=== PATIENT | female | born 1990 | race African-American/Black ===

== ENCOUNTER 2019-10-01 03:05 | Inpatient (IN) | payer BC, MEDICAID ==
[~2019-10-01 03:05] MED LIST: Bupivacaine 0.25% 10 ML SDV ONE; Lidocaine 1.5% with EPINEPHrine 1:200,000 5 ML Amp ONE
[2019-10-01] MEDS ORDERED: Oxytocin/Lactated Ringers 10 UNIT/1,000 ML BAG IV SCH ×2 (05:45)
[2019-10-01] MEDS ORDERED: Sodium Chloride 0.9% 10 ML Syringe FLUSH PRN (05:45)
[2019-10-01] MEDS ORDERED: Ondansetron 4 MG/2 ML SDV IVPUSH PRN ×2 (05:45→07:41)
[2019-10-01] MEDS ORDERED: Nalbuphine 10 MG/ML Syringe IVPUSH PRN (05:45)
[2019-10-01] MEDS: Lactated Ringers 1,000 ML IV SCH ×3 (06:20→08:33)
--- NOTE | 2019-10-01 07:12 | PCM.LDHP ---
L&D History of Present Illness - General Date of Service: 10/01/19 Admit Problem/Dx: Patient Status Order with Admit Dx/Problem 10/01/19 05:44 Patient Status [ADT] Routine 10/01/19 05:46 Patient Status [ADT] Routine Admission Diagnosis/Problem Admission Diagnosis/Problem Source of Information: Patient History Limitations: Reports: No Limitations - History of Present Illness Introduction:: 28 year old at 39w6d here with labor. Painful contractions. PNC with Dr Paniagua without complications. - Related Data Allergies/Adverse Reactions: Allergies Allergy/AdvReac Type Severity Reaction Status Date / Time No Known Allergies Allergy Verified 10/01/19 06:37 Home Medications: Home Meds . [No Known Home Meds] 11/29/14 [History] Past Medical History - Past Health History Medical/Surgical History: Denies Medical/Surgical History Social & Family History - Family History Family Medical History: Unobtainable H&P Review of Systems - Review of Systems: Review Of Systems: See Below General: Reports: No Symptoms HEENT: Reports: No Symptoms Pulmonary: Reports: No Symptoms Cardiovascular: Reports: No Symptoms Gastrointestinal: Reports: No Symptoms Genitourinary: Reports: No Symptoms Musculoskeletal: Reports: No Symptoms Skin: Reports: No Symptoms Psychiatric: Reports: No Symptoms Neurological: Reports: No Symptoms Hematologic/Lymphatic: Reports: No Symptoms Immunologic: Reports: No Symptoms L&D Exam - Exam Exam: See Below - OB Specific Contraction Intensity: Moderate to Strong Movement: Active Heart Rate (FHR) Variability: Moderate (6-25 bmp) Presentation: Vertex - Nova Score Nova Score Cervix Position: Posterior Nova Score Consistency: Soft Nova Score Effacement: 51-70% Nova Score Infant's Station: -2 - Exam General: Alert, Oriented HEENT: PERRLA, Conjunctiva Clear, EACs Clear, EOMI, Hearing Intact, Mucosa Moist & [place], Nares Patent, Normal Nasal Septum, Posterior Pharynx Clear, TMs Clear Neck: Supple, Trachea Midline Lungs: Clear to Auscultation, Normal Respiratory Effort Cardiovascular: Regular Rate, Regular Rhythm GI/Abdominal Exam: Normal Bowel Sounds, Soft, Non-Tender, No Organomegaly, No Distention, No Abnormal Bruit, No Mass, Pelvis Stable Genitourinary: Normal external exam, Normal bimanual exam Back Exam: Normal Inspection, Full Range of Motion Extremities: Normal Inspection, Normal Range of Motion, Non-Tender, No Pedal Edema, Normal Capillary Refill Skin: Warm, Dry, Intact Neurological: Cranial Nerves Intact, Reflexes Equal Bilateral Psychiatric: Alert, Normal Affect, Normal Mood - Patient Data Lab Results Last 24 hrs: Laboratory Results - last 24 hr 10/01/19 Range/Units 05:56 WBC 7.01 (3.98-10.04) K/mm3 RBC 4.49 (3.98-5.22) M/mm3 Hgb 10.8 L (11.2-15.7) gm/dl Hct 34.3 (34.1-44.9) % MCV 76.4 L (79.4-94.8) fl MCH 24.1 L (25.6-32.2) pg MCHC 31.5 L (32.2-35.5) g/dl RDW Std Deviation 44.2 (36.4-46.3) fL Plt Count 280 (182-369) K/mm3 MPV 10.9 (9.4-12.3) fl Neut % (Auto) 63.5 (34.0-71.1) % Lymph % (Auto) 23.1 (19.3-51.7) % [place] % (Auto) 11.4 (4.7-12.5) % Eos % (Auto) 0.7 (0.7-5.8) Baso % (Auto) 0.3 (0.1-1.2) % Neut # (Auto) 4.45 (1.56-6.13) K/mm3 Lymph # (Auto) 1.62 (1.18-3.74) K/mm3 [place] # (Auto) 0.80 H (0.24-0.36) K/mm3 Eos # (Auto) 0.05 (0.04-0.36) K/mm3 Baso # (Auto) 0.02 (0.01-0.08) K/mm3 Result Diagrams: 10/01/19 05:56 Problem List Initiated/Reviewed/Updated: Yes Orders Last 24hrs: Active Orders 24 hr Category Date Time Status Patient Status [ADT] Routine ADT 10/01/19 05:44 Active Patient Status [ADT] Routine ADT 10/01/19 05:46 Active Activity as Tolerated [RC] PFP Care 04/12/20 05:46 Active Communication Order [RC] ASDIRECTED Care 10/01/19 05:46 Active Heart Tones [RC] ASDIRECTED Care 10/01/19 05:46 Active Non Stress Test [RC] PER UNIT ROUTINE Care 10/01/19 05:44 Active Notify Provider [RC] PFP Care 10/01/19 05:46 Active Notify Provider [RC] PRN Care 10/01/19 05:46 Active Peripheral IV Care [RC] . DIRECTED Care 10/01/19 05:46 Active Pump Management, Intrathecal [RC] ASDIRECTED Care 10/01/19 05:46 Active Vital Signs [RC] PER UNIT ROUTINE Care 10/01/19 05:44 Active Vital Signs [RC] PER UNIT ROUTINE Care 10/01/19 05:46 Active Regular Diet [DIET] Diet 10/01/19 Breakfast Active BLOOD BANK HOLD SPECIMEN [BBK] Stat Lab 10/01/19 05:45 Ordered RAPID PLASMA REAGIN,RPR [CHEM] Routine Lab 10/01/19 05:56 Received Lactated Ringers [Ringers, Lactated] 1,000 ml Med 10/01/19 05:45 Active IV ASDIRECTED Nalbuphine [Nubain] Med 10/01/19 05:45 Active 10 mg IVPUSH Q2H PRN Ondansetron [Zofran] Med 10/01/19 05:45 Active 4 mg IVPUSH Q4H PRN Oxytocin/Lactated Ringers [Pitocin in LR 10 Units/1,000 Med 10/01/19 05:45 Active ML] 10 unit in 1,000 ml IV .CONTINUOUS Oxytocin/Lactated Ringers [Pitocin in LR 10 Units/1,000 Med 10/01/19 05:45 Active ML] 10 unit in 1,000 ml IV TITRATE Sodium Chloride 0.9% [Saline Flush] Med 10/01/19 05:45 Active 10 ml FLUSH ASDIRECTED PRN Electronic Heart Tones Ext w TOCO [WOMSER] Oth 10/01/19 05:46 Ordered Routine Electronic Heart Tones Internal [WOMSER] Per Unit Oth 10/01/19 05:46 Ordered Routine Peripheral IV Insertion Adult [OM.PC] Routine Oth 10/01/19 05:46 Ordered Resuscitation Status Routine Resus Stat 10/01/19 05:44 Ordered Medication Orders Lactated Ringer's (Ringers, Lactated) 1,000 mls @ 100 mls/hr IV ASDIRECTED CARMEN Last Admin: 10/01/19 06:20 Dose: 100 mls/hr Oxytocin/Lactated Ringer's (Pitocin In Lr 10 Units/1,000 Ml) 10 unit in 1,000 mls @ 12 mls/hr IV TITRATE CARMEN; Protocol Oxytocin/Lactated Ringer's (Pitocin In Lr 10 Units/1,000 Ml) 10 unit in 1,000 mls @ 500 mls/hr IV .CONTINUOUS CARMEN Nalbuphine HCl (Nubain) 10 mg IVPUSH Q2H PRN PRN Reason: Pain Last Admin: 10/01/19 06:31 Dose: 10 mg Ondansetron HCl (Zofran) 4 mg IVPUSH Q4H PRN PRN Reason: Nausea/Vomiting Sodium Chloride (Saline Flush) 10 ml FLUSH ASDIRECTED PRN PRN Reason: Keep Vein Open Assessment/Plan Comment:: Term labor. Desires epidural. Changed from 1 to 3 cm. AROM clear fluid.
[2019-10-01] MEDS ORDERED: ePHEDrine 50 MG/ML SDV IVPUSH PRN (07:41)
--- NOTE | 2019-10-01 07:44 | PCM.PREANE ---
Preanesthetic Assessment - Anesthesia/Transfusion/Family Hx Anesthesia History: No Prior Anesthesia Family History of Anesthesia Reaction: No Transfusion History: No Prior Transfusion(s) Intubation History: Unknown - Review of Systems General: No Symptoms Pulmonary: No Symptoms Cardiovascular: No Symptoms Gastrointestinal: No Symptoms, Nausea Neurological: No Symptoms Other: Reports: None - Physical Assessment NPO Status Date: 09/30/19 NPO Status Time: 16:00 Vital Signs: HR:90 BP:106/64 Resp:20 Sat:99% Temp:98.2 Height: 1.52 m Weight: 65.317 kg ASA Class: 2 Mental Status: Alert & Oriented x3 Airway Class: Mallampati = 2 Dentition: Reports: Normal Dentition, Caries Thyro-Mental Finger Breadths: 3 Mouth Opening Finger Breadths: 3 ROM/Head Extension: Full Lungs: Clear to Auscultation, Normal Respiratory Effort Cardiovascular: Regular Rate, Regular Rhythm, No Murmurs - Lab Values: Laboratory Last Values WBC 7.01 K/mm3 (3.98-10.04) 10/01/19 05:56 RBC 4.49 M/mm3 (3.98-5.22) 10/01/19 05:56 Hgb 10.8 gm/dl (11.2-15.7) L 10/01/19 05:56 Hct 34.3 % (34.1-44.9) 10/01/19 05:56 MCV 76.4 fl (79.4-94.8) L 10/01/19 05:56 MCH 24.1 pg (25.6-32.2) L 10/01/19 05:56 MCHC 31.5 g/dl (32.2-35.5) L 10/01/19 05:56 RDW Std Deviation 44.2 fL (36.4-46.3) 10/01/19 05:56 Plt Count 280 K/mm3 (182-369) 10/01/19 05:56 MPV 10.9 fl (9.4-12.3) 10/01/19 05:56 Neut % (Auto) 63.5 % (34.0-71.1) 10/01/19 05:56 Lymph % (Auto) 23.1 % (19.3-51.7) 10/01/19 05:56 [place] % (Auto) 11.4 % (4.7-12.5) 10/01/19 05:56 Eos % (Auto) 0.7 (0.7-5.8) 10/01/19 05:56 Baso % (Auto) 0.3 % (0.1-1.2) 10/01/19 05:56 Neut # (Auto) 4.45 K/mm3 (1.56-6.13) 10/01/19 05:56 Lymph # (Auto) 1.62 K/mm3 (1.18-3.74) 10/01/19 05:56 [place] # (Auto) 0.80 K/mm3 (0.24-0.36) H 10/01/19 05:56 Eos # (Auto) 0.05 K/mm3 (0.04-0.36) 10/01/19 05:56 Baso # (Auto) 0.02 K/mm3 (0.01-0.08) 10/01/19 05:56 Above labs reviewed and noted and within acceptable ranges to proceed with epidural. - Allergies Allergies/Adverse Reactions: Allergies Allergy/AdvReac Type Severity Reaction Status Date / Time No Known Allergies Allergy Verified 10/01/19 06:37 - Anesthesia Plan Pre-Op Medication Ordered: None - Acknowledgements Anesthesia Type Planned: Epidural Pt an Appropriate Candidate for the Planned Anesthesia: Yes Alternatives and Risks of Anesthesia Discussed w Pt/Guardian: Yes Pt/Guardian Understands and Agrees with Anesthesia Plan: Yes PreAnesthesia Questionnaire - Past Health History Medical/Surgical History: Denies Medical/Surgical History - HOME MEDS Home Medications: Home Meds . [No Known Home Meds] 11/29/14 [History] - CURRENT (IN HOUSE) MEDS Current Meds: Current Medications Ephedrine Sulfate (Ephedrine Sulfate) 5 mg IVPUSH ASDIRECTED PRN PRN Reason: Hypotension Fentanyl (Sublimaze) 100 mcg EPIDUR Q3H PRN PRN Reason: Pain Fentanyl/Bupivacaine HCl (Fentanyl/Bupivacaine/Ns 2 Mcg-0.125% 100 Ml) 100 ml EPIDUR ASDIRECTED CARMEN Lactated Ringer's (Ringers, Lactated) 1,000 mls @ 100 mls/hr IV ASDIRECTED CARMEN Last Admin: 10/01/19 06:20 Dose: 100 mls/hr Oxytocin/Lactated Ringer's (Pitocin In Lr 10 Units/1,000 Ml) 10 unit in 1,000 mls @ 12 mls/hr IV TITRATE CARMEN; Protocol Oxytocin/Lactated Ringer's (Pitocin In Lr 10 Units/1,000 Ml) 10 unit in 1,000 mls @ 500 mls/hr IV .CONTINUOUS CARMEN Phenylephrine HCl 1 mg/ Sodium (Chloride) 10.1 mls @ 1 mls/sec IV TITRATE CARMEN; Protocol Nalbuphine HCl (Nubain) 10 mg IVPUSH Q2H PRN PRN Reason: Pain Last Admin: 10/01/19 06:31 Dose: 10 mg Ondansetron HCl (Zofran) 4 mg IVPUSH Q4H PRN PRN Reason: Nausea/Vomiting Ondansetron HCl (Zofran) 4 mg IVPUSH ONETIME PRN PRN Reason: Nausea/Vomiting Sodium Chloride (Saline Flush) 10 ml FLUSH ASDIRECTED PRN PRN Reason: Keep Vein Open
[2019-10-01] MEDS ORDERED: Bupivacaine/fentaNYL/NS 100 ML Bag EPIDUR SCH (07:45)
[2019-10-01] MEDS ORDERED: Phenylephrine 1 MG in Sodium Chloride 0.9% 10 ML IV SCH (07:45)
[2019-10-01] MEDS: fentaNYL 100 MCG/2 ML SDV EPIDUR PRN ×2 (08:10→12:44)
--- NOTE | 2019-10-01 16:01 | PCM.SN ---
- Free Text/Narrative Note: Stage I - Patient presented in labor with painful contractions and cervical change. Progressed to complete with AROM and pitocin augmentation after epidural. Stage II - of viable male, weight 6#7oz, 8/9 APGARS at 1534. Head delivered in controlled manner over intact perineum, body and shoulders followed without difficulty. To maternal abdomen. Cord clamped and cut by FOB. Stage III - of intact placenta. 3vc. EBL 300. 2nd degree MLL repaired with 3 -0 vicryl.
[2019-10-01] MEDS ORDERED: Docusate Sodium 100 MG Cap PO PRN (16:20)
[2019-10-01] MEDS ORDERED: Benzocaine/Menthol 20%-0.5% Spray 56 GM Canister TOP PRN (16:20)
[2019-10-01] MEDS: Witch Hazel Medicated Pads 40/Jar TOP PRN (18:47)
[2019-10-01] MEDS: Ibuprofen 600 MG Tab PO PRN (18:47)
--- NOTE | 2019-10-02 01:00 | PCM.PNPP ---
- General Info Date of Service: 10/02/19 Functional Status: Reports: Pain Controlled - Review of Systems General: Reports: No Symptoms HEENT: Reports: No Symptoms Pulmonary: Reports: No Symptoms Cardiovascular: Reports: No Symptoms Gastrointestinal: Reports: No Symptoms Genitourinary: Reports: No Symptoms Musculoskeletal: Reports: No Symptoms Skin: Reports: No Symptoms Neurological: Reports: No Symptoms Psychiatric: Reports: No Symptoms - General Info Date of Service: 10/02/19 - Patient Data Vital Signs - Most Recent: Last Vital Signs Temp 36.8 C 10/01/19 20:45 Pulse 96 10/01/19 20:45 Resp 16 10/01/19 20:45 BP 95/50 L 10/01/19 20:45 Pulse Ox 100 10/01/19 20:45 Weight - Most Recent: 65.317 kg I&O - Last 24 Hours: Intake & Output 10/01/19 10/01/19 10/02/19 14:59 22:59 06:59 Intake Total 1000 100 Balance 1000 100 Lab Results - Last 24 Hours: Laboratory Results - last 24 hr 10/01/19 Range/Units 05:56 WBC 7.01 (3.98-10.04) K/mm3 RBC 4.49 (3.98-5.22) M/mm3 Hgb 10.8 L (11.2-15.7) gm/dl Hct 34.3 (34.1-44.9) % MCV 76.4 L (79.4-94.8) fl MCH 24.1 L (25.6-32.2) pg MCHC 31.5 L (32.2-35.5) g/dl RDW Std Deviation 44.2 (36.4-46.3) fL Plt Count 280 (182-369) K/mm3 MPV 10.9 (9.4-12.3) fl Neut % (Auto) 63.5 (34.0-71.1) % Lymph % (Auto) 23.1 (19.3-51.7) % [place] % (Auto) 11.4 (4.7-12.5) % Eos % (Auto) 0.7 (0.7-5.8) Baso % (Auto) 0.3 (0.1-1.2) % Neut # (Auto) 4.45 (1.56-6.13) K/mm3 Lymph # (Auto) 1.62 (1.18-3.74) K/mm3 [place] # (Auto) 0.80 H (0.24-0.36) K/mm3 Eos # (Auto) 0.05 (0.04-0.36) K/mm3 Baso # (Auto) 0.02 (0.01-0.08) K/mm3 Med Orders - Current: Current Medications Benzocaine/Menthol (Dermoplast Pain Relief [place]) 0 gm TOP ASDIRECTED PRN PRN Reason: Perineal Comfort Measure Last Admin: 10/01/19 18:47 Dose: 1 can Docusate Sodium (Colace) 100 mg PO BID PRN PRN Reason: Constipation Ibuprofen (Motrin) 600 mg PO Q6H PRN PRN Reason: Mild pain or fever Last Admin: 10/01/19 18:47 Dose: 600 mg Witch Samuel (Tucks) 1 pad TOP ASDIRECTED PRN PRN Reason: Pain Last Admin: 10/01/19 18:47 Dose: 1 tub Discontinued Medications Ephedrine Sulfate (Ephedrine Sulfate) 5 mg IVPUSH ASDIRECTED PRN PRN Reason: Hypotension Fentanyl (Sublimaze) 100 mcg EPIDUR Q3H PRN PRN Reason: Pain Last Admin: 10/01/19 12:44 Dose: 100 mcg Fentanyl/Bupivacaine HCl (Fentanyl/Bupivacaine/Ns 2 Mcg-0.125% 100 Ml) 100 ml EPIDUR ASDIRECTED CARMEN Lactated Ringer's (Ringers, Lactated) 1,000 mls @ 100 mls/hr IV ASDIRECTED CARMEN Last Admin: 10/01/19 08:33 Dose: 100 mls/hr Oxytocin/Lactated Ringer's (Pitocin In Lr 10 Units/1,000 Ml) 10 unit in 1,000 mls @ 12 mls/hr IV TITRATE CARMEN; Protocol Last Admin: 10/01/19 10:09 Dose: 2 munits/min, 12 mls/hr Oxytocin/Lactated Ringer's (Pitocin In Lr 10 Units/1,000 Ml) 10 unit in 1,000 mls @ 500 mls/hr IV .CONTINUOUS CARMEN Phenylephrine HCl 1 mg/ Sodium (Chloride) 10.1 mls @ 1 mls/sec IV TITRATE CARMEN; Protocol Nalbuphine HCl (Nubain) 10 mg IVPUSH Q2H PRN PRN Reason: Pain Last Admin: 10/01/19 06:31 Dose: 10 mg Ondansetron HCl (Zofran) 4 mg IVPUSH Q4H PRN PRN Reason: Nausea/Vomiting Ondansetron HCl (Zofran) 4 mg IVPUSH ONETIME PRN PRN Reason: Nausea/Vomiting Sodium Chloride (Saline Flush) 10 ml FLUSH ASDIRECTED PRN PRN Reason: Keep Vein Open - Recovery Exam Fundal Tone: Firm Fundal Level: At Umbilicus Fundal Placement: Midline Lochia Amount: Small Lochia Color: Rubra/Red Perineum Description: Intact, Minimal Bruising/Swelling Episiotomy/Laceration: Approximated Bladder Status: Voiding Urinary Elimination: Voided - Exam General: Alert, Oriented HEENT: Pupils Equal Neck: Supple Lungs: Clear to Auscultation, Normal Respiratory Effort Cardiovascular: Regular Rate, Regular Rhythm GI/Abdominal Exam: Normal Bowel Sounds, Soft, Non-Tender, No Organomegaly, No Distention, No Abnormal Bruit Extremities: Normal Inspection, Normal Range of Motion, Non-Tender, No Pedal Edema, Normal Capillary Refill Neurological: No New Focal Deficit Psy/Mental Status: Alert, Normal Affect, Normal Mood - Problem List Review Problem List Initiated/Reviewed/Updated: Yes - My Orders Last 24 Hours: My Active Orders 10/01/19 05:44 Vital Signs [RC] PER UNIT ROUTINE Resuscitation Status Routine 10/01/19 05:46 Heart Tones [RC] ASDIRECTED 10/01/19 05:56 RAPID PLASMA REAGIN,RPR [CHEM] Routine 10/01/19 16:20 Activity as Tolerated [RC] PER UNIT ROUTINE Vital Signs [RC] ASDIRECTED Benzocaine/Menthol [Dermoplast Pain Relief [place]] See Dose Instructions TOP ASDIRECTED PRN Docusate Sodium [Colace] 100 mg PO BID PRN Ibuprofen [Motrin] 600 mg PO Q6H PRN witch Samuel [Tucks] 1 pad TOP ASDIRECTED PRN Assess Lochia [WOMSER] Per Unit Routine Assess Uterine Involution [WOMSER] Per Unit Routine Breast Pump [WOMSER] Per Unit Routine Heat Therapy [OM.PC] PRN Medication Administration Instruction [OM.PC] Routine Perineal Care [OM.PC] Per Unit Routine Sitz Bath [OM.PC] Per Unit Routine 10/02/19 16:20 Heat Therapy [OM.PC] PRN - Plan Plan:: PPD1 Doing well No complaints. Probable discharge tomorrow.
[2019-10-02] MEDS: Ibuprofen 600 MG Tab PO PRN ×3 (03:46→23:08)
--- NOTE | 2019-10-02 07:43 | PCM48HPAN ---
Post Anesthesia Note - EVALUATION WITHIN 48HRS OF ANESTHETIC Vital Signs in Normal Range: Yes Patient Participated in Evaluation: Yes Respiratory Function Stable: Yes Airway Patent: Yes Cardiovascular Function Stable: Yes Hydration Status Stable: Yes Pain Control Satisfactory: Yes Nausea and Vomiting Control Satisfactory: Yes Mental Status Recovered: Yes Vital Signs: Last Vital Signs Temp 98.1 F 10/02/19 03:33 Pulse 88 10/02/19 03:33 Resp 18 10/02/19 03:33 BP 99/55 L 10/02/19 03:33 Pulse Ox 100 10/02/19 03:33 - COMMENTS/OBSERVATIONS Free Text/Narrative:: Patient is on her day 1. Stated understanding about possible backaches following epidural anesthesia. Mentions having some minor back soreness at this time. Explanation given about importance of avoiding back straining. Denies any headache or lightheadedness at this time. Comfortable now. Ambulating, no difficulty urinating.
[2019-10-02] MEDS: Witch Hazel Medicated Pads 40/Jar TOP PRN (20:17)
--- NOTE | 2019-10-03 09:00 | PCM.DCSUM1 ---
Discharge Summary - Hospital Course Diagnosis: Stroke: No - Discharge Data Discharge Date: 10/03/19 Discharge Disposition: Home, Self-Care 01 Condition: Good - Referral to Home Health Primary Care Physician: Vania Paniagua MD - Patient Instructions Diet: Usual Diet as Tolerated Activity: No Strenuous Activities Activity, Other: pelvic rest Driving: May Drive Today Notify Provider of: Fever, Increased Pain, Swelling and Redness, Drainage, Nausea and/or Vomiting - Discharge Plan *PRESCRIPTION DRUG MONITORING PROGRAM REVIEWED*: No *COPY OF PRESCRIPTION DRUG MONITORING REPORT IN PATIENT BRANDIE: No Home Medications: Home Meds Vit No.129/Iron/FA [ Tablet] 1 each PO DAILY 10/01/19 [History] Patient Handouts: and Inducing , Care After Vaginal Delivery - Discharge Summary/Plan Comment DC Time >30 min.: No - General Info Date of Service: 10/03/19 Functional Status: Reports: Pain Controlled - Review of Systems General: Reports: No Symptoms HEENT: Reports: No Symptoms Pulmonary: Reports: No Symptoms Cardiovascular: Reports: No Symptoms Gastrointestinal: Reports: No Symptoms Genitourinary: Reports: No Symptoms Musculoskeletal: Reports: No Symptoms Skin: Reports: No Symptoms Neurological: Reports: No Symptoms Psychiatric: Reports: No Symptoms - Patient Data Vitals - Most Recent: Last Vital Signs Temp 36.5 C 10/03/19 03:01 Pulse 95 10/02/19 20:11 Resp 17 10/03/19 03:01 BP 100/54 L 10/03/19 03:01 Pulse Ox 100 10/02/19 20:11 Weight - Most Recent: 65.317 kg Lab Results - Last 24 hrs: Laboratory Results - last 24 hr 10/01/19 Range/Units 05:56 RPR Non-reactive (NONREACTIVE) Med Orders - Current: Current Medications Benzocaine/Menthol (Dermoplast Pain Relief [place]) 0 gm TOP ASDIRECTED PRN PRN Reason: Perineal Comfort Measure Last Admin: 10/01/19 18:47 Dose: 1 can Docusate Sodium (Colace) 100 mg PO BID PRN PRN Reason: Constipation Last Admin: 10/03/19 05:47 Dose: 100 mg Ibuprofen (Motrin) 600 mg PO Q6H PRN PRN Reason: Mild pain or fever Last Admin: 10/02/19 23:08 Dose: 600 mg Witch Ricarda (Tucks) 1 pad TOP ASDIRECTED PRN PRN Reason: Pain Last Admin: 10/02/19 20:17 Dose: 1 tub Discontinued Medications Ephedrine Sulfate (Ephedrine Sulfate) 5 mg IVPUSH ASDIRECTED PRN PRN Reason: Hypotension Fentanyl (Sublimaze) 100 mcg EPIDUR Q3H PRN PRN Reason: Pain Last Admin: 10/01/19 12:44 Dose: 100 mcg Fentanyl/Bupivacaine HCl (Fentanyl/Bupivacaine/Ns 2 Mcg-0.125% 100 Ml) 100 ml EPIDUR ASDIRECTED CARMEN Lactated Ringer's (Ringers, Lactated) 1,000 mls @ 100 mls/hr IV ASDIRECTED CARMEN Last Admin: 10/01/19 08:33 Dose: 100 mls/hr Oxytocin/Lactated Ringer's (Pitocin In Lr 10 Units/1,000 Ml) 10 unit in 1,000 mls @ 12 mls/hr IV TITRATE CARMEN; Protocol Last Admin: 10/01/19 10:09 Dose: 2 munits/min, 12 mls/hr Oxytocin/Lactated Ringer's (Pitocin In Lr 10 Units/1,000 Ml) 10 unit in 1,000 mls @ 500 mls/hr IV .CONTINUOUS CARMEN Phenylephrine HCl 1 mg/ Sodium (Chloride) 10.1 mls @ 1 mls/sec IV TITRATE CARMEN; Protocol Nalbuphine HCl (Nubain) 10 mg IVPUSH Q2H PRN PRN Reason: Pain Last Admin: 10/01/19 06:31 Dose: 10 mg Ondansetron HCl (Zofran) 4 mg IVPUSH Q4H PRN PRN Reason: Nausea/Vomiting Ondansetron HCl (Zofran) 4 mg IVPUSH ONETIME PRN PRN Reason: Nausea/Vomiting Sodium Chloride (Saline Flush) 10 ml FLUSH ASDIRECTED PRN PRN Reason: Keep Vein Open - Exam General: Reports: Alert, Oriented HEENT: Reports: Pupils Equal, Pupils Reactive, EOMI, Mucous Membr. Moist/[place] Neck: Reports: Supple Lungs: Reports: Clear to Auscultation, Normal Respiratory Effort Cardiovascular: Reports: Regular Rate, Regular Rhythm GI/Abdominal Exam: Normal Bowel Sounds, Soft, Non-Tender, No Organomegaly, No Distention, No Abnormal Bruit, No Mass, Pelvis Stable Rectal (Female) Exam: Normal Exam, Normal Rectal Tone Back Exam: Reports: Normal Inspection, Full Range of Motion Extremities: Normal Inspection, Normal Range of Motion, Non-Tender, No Pedal Edema, Normal Capillary Refill Skin: Reports: Warm, Dry, Intact Wound/Incisions: Reports: Healing Well Neurological: Reports: No New Focal Deficit Psy/Mental Status: Reports: Alert, Normal Affect, Normal Mood
[2019-10-03] MEDS: Ibuprofen 600 MG Tab PO PRN (11:25)
[2019-10-03 11:38] VITALS: BP 98/42; PULSE 65
== END 2019-10-03 12:00 | disposition home or self-care (01) | DRG 560 ==
LOC: JD.OBCHECK 03:05 → JD.OB 03:05 → JD.OBCHECK 05:45 → JD.OB 05:46 → OBSVTOIN 15:34 → JD.OB 15:52
PROVIDERS: ADMIT Obstetrics & Gynecology; ATTEND Obstetrics & Gynecology
PROC: 10E0XZZ Delivery of Products of Conception, External Approach (ICD-10-PCS; principal; 2019-10-01)
PROC: 10907ZC Drainage of Amniotic Fluid, Therapeutic from Products of Conception, Via Natural or Artificial Opening (ICD-10-PCS; 2019-10-01)
PROC: 0KQM0ZZ Repair Perineum Muscle, Open Approach (ICD-10-PCS; 2019-10-01)
PROC: 3E0R3BZ Introduction of Anesthetic Agent into Spinal Canal, Percutaneous Approach (ICD-10-PCS; 2019-10-01)
DX: O70.1 Second degree perineal laceration during delivery (principal); Z3A.39 39 weeks gestation of pregnancy; Z37.0 Single live birth; Z79.899 Other long term (current) drug therapy
CPT/HCPCS: 36415; 51702; 59020; 59409; 85025; 86592; A9270-GY; J2300; J2590; J3010; J3490; J7120

== ENCOUNTER 2019-10-10 20:07 | Emergency (ER) | payer BC, MEDICAID ==
[2019-10-10 20:21] VITALS: BP 108/64; PULSE 89
[2019-10-10] MEDS ORDERED: Ibuprofen 600 MG Tab PO ONE (20:47)
--- NOTE | 2019-10-10 20:47 | EDM.PDOC ---
ED HPI GENERAL MEDICAL PROBLEM - General Chief Complaint: Lower Extremity Injury/Pain Stated Complaint: CANT MOVE LEG Time Seen by Provider: 10/10/19 20:22 Source of Information: Reports: Patient History Limitations: Reports: No Limitations - History of Present Illness INITIAL COMMENTS - FREE TEXT/NARRATIVE: Mrs. Steinberg is a very pleasant 28-year-old woman with no chronic medical problems and no past surgical history, who underwent a vaginal delivery after epidural on 10/01/2019. She was discharged home on 10/03/2019, in good condition. She is breast-feeding her baby. She now presents to the ED stating that she developed pain to her lower right back and right buttock with weightbearing or movement, this morning. She has no pain if she remains still or is not standing. She describes the pain is crampy in character. In contrast to the triage note, the patient denies any weakness, tingling, or numbness. She has not had any bowel or bladder incontinence. No prior similar symptoms. The patient has not taken any [id number] or home remedies to try to treat any of her symptoms today. Here in the ED, the patient is found to be hemodynamically stable, afebrile, saturating 97% on room air. The patient denies recent fever, chills, sore throat, ear pain, nasal or sinus congestion, cough, dyspnea, chest pain, palpitations, nausea, vomiting, constipation, diarrhea, abdominal pain, urinary symptoms, recent weight gain or weight loss, recent bloody bowel movements or black bowel movements, recent joint aches, headaches, or rashes. The patient does not have a PCP. Her LUMBER ESTIMATOR is Dr. Vania Paniagua. Right Hip Pain Score (Numeric/FACES): 6 - Related Data Allergies Allergy/AdvReac Type Severity Reaction Status Date / Time No Known Allergies Allergy Verified 10/10/19 20:21 Home Meds: Home Meds Vit No.129/Iron/FA [ Tablet] 1 each PO DAILY 10/01/19 [History] Past Medical History - Past Health History Medical/Surgical History: Denies Medical/Surgical History : 1 Para: 1 Social & Family History - Family History Family Medical History: Unobtainable - Tobacco Use Smoking Status *Q: Never Smoker Second Hand Smoke Exposure: No - Caffeine Use Caffeine Use: Reports: None - Alcohol Use Alcohol Use History: No - Recreational Drug Use Recreational Drug Use: No - Living Situation & Occupation Living situation: Reports: , with Spouse, with Family (1 baby) Occupation: Unemployed ED ROS GENERAL - Review of Systems Review Of Systems: Comprehensive ROS is negative, except as noted in HPI. ED EXAM, GENERAL - Physical Exam Exam: See Below Exam Limited By: No Limitations General Appearance: Alert, WD/WN, No Apparent Distress Eye Exam: Bilateral Eye: EOMI, Normal Inspection Ears: Normal External Exam, Hearing Grossly Normal Nose: Normal Inspection Throat/Mouth: Normal Inspection, Normal Lips, Normal Voice, No Airway Compromise Head: Atraumatic, Normocephalic Neck: Normal Inspection, Full Range of Motion Respiratory/Chest: No Respiratory Distress, Lungs Clear, Normal Breath Sounds, No Accessory Muscle Use Cardiovascular: Normal Peripheral Pulses, Regular Rate, Rhythm, No Edema, No Gallop, No JVD, No Murmur, No Rub Peripheral Pulses: 4+: Radial (L), Radial (R), Posterior Tibial (L), Posterior Tibial (R), Dorsalis Pedis (L), Dorsalis Pedis (R) GI/Abdominal: Normal Bowel Sounds, Soft, No Organomegaly, No Distention, No Abnormal Bruit, No Mass, Tender (Mild, generalized, non-focal) (Female) Exam: Deferred Rectal (Female) Exam: Deferred Back Exam: Normal Inspection, Full Range of Motion, CVA Tenderness (R). No: CVA Tenderness (L) Extremities: Normal Inspection, Normal Range of Motion, No Pedal Edema, Normal Capillary Refill, Other (Reproducible tenderness to the superior aspect of the patient's right buttock, and down to the mid-right buttock. Nontender elsewhere.) Neurological: Alert, Oriented, Normal Cognition, No Motor/Sensory Deficits, Other (Straight leg raise negative to 90 degrees bilaterally) Psychiatric: Normal Affect Skin Exam: Warm, Dry, Intact, Normal Color, No Rash Course - Vital Signs Last Recorded V/S: Last Vital Signs Temp 36.4 C 10/10/19 20:18 Pulse 89 10/10/19 20:18 Resp 20 10/10/19 20:18 BP 108/64 10/10/19 20:18 Pulse Ox 97 10/10/19 20:18 - Orders/Labs/Meds Meds: Medications Discontinued Medications Generic Name Dose Route Start Last Admin Trade Name Leonid PRN Reason Stop Dose Admin Ibuprofen 600 mg 10/10/19 20:47 10/10/19 20:59 Motrin PO 10/10/19 20:48 600 mg ONETIME ONE Administration - Re-Assessments/Exams Free Text/Narrative Re-Assessment/Exam: 10/10/19 20:41 The patient's right lower back and right buttock pain is reproducible with palpation to the area of pain, but is not reproduced with a straight leg raise on either side, strongly indicating a local muscle spasm, and inconsistent with pain coming from her back, either due to a complication from her epidural or from a herniated intervertebral disc. Ordinarily, I would treat pain like this with a muscle relaxant, however, the implications of Norflex on breast milk is not known. It is category C. I discussed this with the patient, and the patient agrees that we will not start her on Norflex, but that she may take [id number] ibuprofen as needed for discomfort, and begin some stretching maneuvers of the area. Departure - Departure Time of Disposition: 20:43 Disposition: Home, Self-Care 01 Condition: Good Clinical Impression: Muscle spasm of back - Discharge Information *PRESCRIPTION DRUG MONITORING PROGRAM REVIEWED*: Not Applicable *COPY OF PRESCRIPTION DRUG MONITORING REPORT IN PATIENT BRANDIE: Not Applicable Instructions: Muscle Cramps and Spasms Referrals: Vania Paniagua MD [Physician] - Forms: ED Department Discharge Additional Instructions: You were seen in the emergency room after developing lower right back and buttock pain with weightbearing and movement. Based on your history and physical examination, your pain is most likely due to a muscle spasm. Since you are breast-feeding, we have agreed that we will not start you on a muscle relaxant, however, you may take [id number] ibuprofen, 2 to 3 tablets (400-600 mg) every 8 hours, with food, as needed for discomfort. We also recommend that you begin stretching the area. Massage or a heating pad may also be beneficial. If any other problems, please do not hesitate to return to the ER. Sepsis Event Note - Evaluation Sepsis Screening Result: No Definite Risk - Focused Exam Vital Signs: Vital Signs Temp Pulse Resp BP Pulse Ox 10/10/19 20:18 36.4 C 89 20 108/64 97 Date Exam was Performed: 10/10/19 Time Exam was Performed: 21:04
== END 2019-10-10 21:02 | disposition home or self-care (01) ==
LOC: JD.ED 20:07
DX: O90.89 Other complications of the puerperium, not elsewhere classified (principal); M62.830 Muscle spasm of back
CPT/HCPCS: 99283; A9270; 99282

== ENCOUNTER 2021-11-10 15:11 | Inpatient (IN) | payer BC, MEDICAID ==
[~2021-11-10 15:11] MED LIST changes: -Lidocaine 1.5% with EPINEPHrine 1:200,000 5 ML Amp ONE
[2021-11-10] MEDS ORDERED: Sodium Chloride 0.9% 10 ML Syringe FLUSH PRN (15:13)
[2021-11-10] MEDS ORDERED: Ondansetron 4 MG/2 ML SDV IVPUSH PRN (15:13)
[2021-11-10] MEDS ORDERED: Nalbuphine HCl 10 MG/ 1ML Amp IVPUSH PRN (15:13)
[2021-11-10] MEDS ORDERED: Oxytocin/Lactated Ringers 10 UNIT/1,000 ML BAG IV SCH ×2 (15:15)
[2021-11-10] MEDS: Lactated Ringers 1,000 ML IV SCH ×4 (15:47→18:05)
[2021-11-10] MEDS ORDERED: Bupivacaine/fentaNYL/NS 100 ML Bag EPIDUR PRN (16:10)
[2021-11-10] MEDS ORDERED: ePHEDrine 50 MG/ML SDV IVPUSH PRN (16:10)
[2021-11-10] MEDS ORDERED: fentaNYL 100 MCG/2 ML SDV EPIDUR PRN (16:10)
[2021-11-10] MEDS ORDERED: diphenhydrAMINE 50 MG/ML SDV IVPUSH PRN (16:10)
[2021-11-10] MEDS ORDERED: Sodium Chloride 0.9% 10 ML Syringe FLUSH SCH (21:00)
[2021-11-10] MEDS ORDERED: Witch Hazel Medicated Pads 40/Jar TOP PRN (22:40)
[2021-11-10] MEDS ORDERED: Benzocaine/Menthol 20%-0.5% Spray 78 GM Cannister TOP PRN (22:40)
[2021-11-11] MEDS: Ibuprofen 600 MG Tab PO PRN ×3 (04:15→19:03)
[2021-11-11] MEDS: Acetaminophen 325 MG Tab PO PRN ×2 (06:48→14:55)
[2021-11-11] MEDS: Docusate Sodium 100 MG Cap PO PRN (11:15)
[2021-11-12] MEDS: Ibuprofen 600 MG Tab PO PRN (02:52)
[2021-11-12] MEDS: Docusate Sodium 100 MG Cap PO PRN (10:41)
[2021-11-12 13:10] VITALS: BP 115/68; PULSE 68
== END 2021-11-12 13:00 | disposition home or self-care (01) | DRG 807 ==
LOC: JD.OB 15:11 → OBSVTOIN 21:20 → JD.OB 21:21
PROVIDERS: ADMIT Obstetrics & Gynecology; ATTEND Obstetrics & Gynecology
PROC: 10E0XZZ Delivery of Products of Conception, External Approach (ICD-10-PCS; principal; 2021-11-10)
PROC: 0KQM0ZZ Repair Perineum Muscle, Open Approach (ICD-10-PCS; 2021-11-10)
PROC: 3E033VJ Introduction of Other Hormone into Peripheral Vein, Percutaneous Approach (ICD-10-PCS; 2021-11-10)
PROC: 10907ZC Drainage of Amniotic Fluid, Therapeutic from Products of Conception, Via Natural or Artificial Opening (ICD-10-PCS; 2021-11-10)
PROC: 3E0R3BZ Introduction of Anesthetic Agent into Spinal Canal, Percutaneous Approach (ICD-10-PCS; 2021-11-10)
PROC: 00HU33Z Insertion of Infusion Device into Spinal Canal, Percutaneous Approach (ICD-10-PCS; 2021-11-10)
DX: O48.0 Post-term pregnancy (principal); Z37.0 Single live birth; Z3A.40 40 weeks gestation of pregnancy; Z56.0 Unemployment, unspecified; O70.1 Second degree perineal laceration during delivery; O69.81X0 Labor and delivery complicated by cord around neck, without compression, not applicable or unspecified
CPT/HCPCS: 01967; 36415; 51701; 51702; 59025; 59409; 85025; 86592; 86850; 86900; 86901; A9270-GY; J2590; J3010; J3490; J7120